=== PATIENT | male | born 1980 | race American Indian/Alaskan Native ===

== ENCOUNTER 2020-04-22 07:48 | Emergency (ER) | payer SELFPAY ==
[2020-04-22 07:56] VITALS: BP 153/87
[2020-04-22 09:10] LABS: Basophils # (Auto) 0.1 K/mm3 (0.0-0.1); Basophils % (Auto) 1.5 % (0.0-1.8); Eosinophils # (Auto) 0.1 K/mm3 (0.0-0.4); Eosinophils % (Auto) 2.1 % (0.0-4.3); Hemoglobin 14.5 gm/dl (11.8-15.2); Lymphocytes # (Auto) 1.6 K/mm3 (1.2-5.4); Lymphocytes % (Auto) 36.7 % (13.4-35.0); Mean Corpuscular HGB Conc 34 % (32-34); Mean Corpuscular Volume 96 fl (84-94); Monocytes # (Auto) 0.3 K/mm3 (0.0-0.8); Monocytes % (Auto) 7.6 % (0.0-7.3); Platelet Count 290 K/mm3 (140-440); Red Cell Distribution Width 13.9 % (13.2-15.2)
[2020-04-22 09:25] LABS: Alanine Aminotransferase 88 units/L (7-56); BUN/Creatinine Ratio 17; Blood Urea Nitrogen 12 mg/dL (9-20); Calcium 9.7 mg/dL (8.4-10.2); Hemolysis Index 6
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
--- NOTE | 2020-04-22 10:31 | XRay Report ---
CHEST 2 VIEWS INDICATION / CLINICAL INFORMATION: MAIN: right sided neck pain patient states that the pain in his chest is on the right upper side. COMPARISON: None available. FINDINGS: SUPPORT DEVICES: None. HEART / MEDIASTINUM: No significant abnormality. LUNGS / PLEURA: No significant pulmonary or pleural abnormality. No pneumothorax. ADDITIONAL FINDINGS: No significant additional findings. IMPRESSION: No significant abnormality Signer Name: Bret LOU Signed: 04/22/2020 10:27 AM Workstation Name: [id number]
[2020-04-22] MEDS ORDERED: KETOROLAC 10 MG TAB PO ONE (10:39)
--- NOTE | 2020-04-22 10:46 | XRay Report ---
CERVICAL SPINE 3 VIEWS INDICATION / CLINICAL INFORMATION: MAIN: right side neck pain/runs through right side to arm patient states. COMPARISON: None available. FINDINGS: VERTEBRAE: No acute fracture. Reversal of cervical lordosis centered at C4 level is attributed to deg enerative changes. DISC SPACES / FACET JOINTS:Advanced degenerative disc disease worst at C3-C4, C4-C5 with moderate dis c space narrowing and anterior and posterior disc osteophyte complexes. PARASPINAL SOFT TISSUES:No significant abnormality. Signer Name: Israel Perez MD Signed: 04/22/2020 10:42 AM Workstation Name: [id number]
== END 2020-04-22 12:00 | disposition home or self-care (01) ==
LOC: ED 07:48
DX: M54.12 Radiculopathy, cervical region (principal); R07.89 Other chest pain
CPT/HCPCS: 36415; 71046; 72040; 80053; 84484; 85025; 93005

== ENCOUNTER 2020-11-05 16:00 | Emergency (ER) | payer SELFPAY ==
[2020-11-05 16:56] VITALS: BP 149/95
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
== END 2020-11-05 19:46 | disposition home or self-care (01) ==
LOC: ED 16:00
DX: M54.2 Cervicalgia (principal); R20.2 Paresthesia of skin
CPT/HCPCS: 99282

== ENCOUNTER 2021-11-21 10:07 | Emergency (ER) | payer SELFPAY ==
[2021-11-21 10:26] VITALS: BP 138/103
--- NOTE | 2021-11-21 12:52 | Emergency Department Report ---
Chief Complaint: Extremity Injury, Upper Stated Complaint: IN A LOT OF PAIN Time Seen by Provider: 11/21/21 12:03 - HPI History of Present Illness: 41-year-old -[place] male presents to the emergency room complaining of right neck pain that radiates down his right arm. This is a chronic condition patient was first seen in March for this. He was last seen here on 11/05/2021 and was placed on steroids naproxen Robaxin and referral to Dr. Short as well as Dr. Ceballos. Patient reports he has not taken any pain medication. He has not followed up with any providers. Patient states that he was also seen at [facility] in days could not figure out what was wrong. - Exam Vital Signs: Vital Signs 11/21/21 10:24 Temperature 98.5 F Pulse Rate 100 H Respiratory 16 Rate Blood Pressure 138/103 [Left] O2 Sat by Pulse 100 Oximetry Physical Exam: General: Awake, appropriately interactive, no acute distress. Neck: Supple. Full range of motion intact. Cardiovascular: Normal peripheral perfusion. Pulmonary: No respiratory distress. Patient is speaking normally without use of accessory muscles. Skin: No apparent rashes or lesions. Neurological: No facial asymmetry. Speech is clear. Follows commands. Patient is alert and oriented. Musculoskeletal: Full range of motion, no crepitus. Mild tenderness to right shoulder. Full range of motion. Patient is able to lift himself with his right hand into his chair. Able to bear weight and ambulate without difficulty. Distal neurovascular and motor/sensory function is intact. Psych: Cooperative. Appropriate mood and affect. MSE screening note: Focused history and physical exam performed. Due to findings the following was ordered: 41-year-old -[place]oven[place] male presents to the emergency room complaining of right neck pain that radiates down his right arm. This is a chronic condition patient was first seen in March for this. He was last seen here on 11/05/2021 and was placed on steroids naproxen Robaxin and referral to Dr. Short as well as Dr. Ceballos. Patient reports he has not taken any pain medication. He has not followed up with any providers. Patient states that he was also seen at [facility] in days could not figure out what was wrong. ED Medical Decision Making - Medical Decision Making 41-year-old -[place] male presents to the emergency room complaining of right neck pain that radiates down his right arm. This is a chronic condition patient was first seen in March for this. He was last seen here on 11/05/2021 and was placed on steroids naproxen Robaxin and referral to Dr. Short as well as Dr. Ceballos. Patient reports he has not taken any pain medication. He has not followed up with any providers. Patient states that he was also seen at [facility] in days could not figure out what was wrong. Recommend for patient to follow-up with a primary care provider as well as an orthopedist provider. Discussed with patient he can take [id number] pain medication. ED Disposition for MSE Clinical Impression: Chronic right shoulder pain Disposition: HOME / SELF CARE / HOMELESS Is pt being admited?: No Does the pt Need Aspirin: No Condition: Stable Instructions: Shoulder Pain, [id number], Chronic Pain, Adult Additional Instructions: Need to take [id number] pain medication such as ibuprofen or Tylenol. Is very important you follow-up with your primary care provider and orthopedist provider. As the emergency room does not manage chronic pain. Referrals: MAY VIGIL MD [Staff Physician] - 3-5 Days NILA CEBALLOS MD [Staff Physician] - 3-5 Days Time of Disposition: 12:36
== END 2021-11-21 13:00 | disposition home or self-care (01) ==
LOC: ED 10:07
DX: G89.29 Other chronic pain (principal); M25.511 Pain in right shoulder; M54.2 Cervicalgia
CPT/HCPCS: 99282